=== PATIENT | female | born 1975 | race Two or more races ===

== ENCOUNTER 2019-01-26 09:53 | Emergency (ER) | payer MEDICAID ==
[~2019-01-26] VITALS: Ht 149.9 cm; Wt 85.7 kg
--- NOTE | 2019-01-26 09:53 | NUR ---
BIB FRIEND W C/O LLQ ABDOMINAL PAIN AND VAGINAL BLEEDING x 16 DAYS. A0, DENIES . 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
--- NOTE | 2019-01-26 10:50 | NUR ---
DR PUTNAM AT BEDSIDE FOR EVAL.
[2019-01-26 11:11] LABS: BASOPHILS # (AUTO) 0.1 /CMM (0.0-0.2); BASOPHILS % (AUTO) 1.3 % (0.0-2.0); EOSINOPHILS % (AUTO) 8.5 % (0.0-6.0); LYMPHOCYTES # (AUTO) 2.1 /CMM (0.8-4.8); LYMPHOCYTES % (AUTO) 28.4 % (20.0-44.0); MEAN CORPUSCULAR HGB CONC 33 g/dl (31.0-36.0); MEAN CORPUSCULAR VOLUME 79 fL (82-100); MONOCYTES # (AUTO) 0.5 /CMM (0.1-1.30); MONOCYTES % (AUTO) 6.6 % (2.0-12.0); NEUTROPHILS % (AUTO) 55.2 % (43.0-81.0); PLATELET COUNT (AUTO) 367 /CMM (150-450); RED BLOOD CELL COUNT(AUTO) 2.42 MIL/uL (4.0-5.2); WHITE BLOOD COUNT (AUTO) 7.3 K/uL (4.3-11.0)
[2019-01-26 11:14] LABS: HEMATOCRIT 19 % (33-45); HEMOGLOBIN 6.2 g/dL (11.5-14.8)
[2019-01-26 11:16] LABS: CALCIUM, SERUM 8.2 mg/dL (8.5-10.1); CREATININE 0.5 mg/dL (0.6-1.3); POTASSIUM 4.3 mmol/L (3.5-5.1)
[2019-01-26 11:21] LABS: ALBUMIN 3.3 g/dL (3.4-5.0); BILIRUBIN,DIRECT 0.1 mg/dL (0.0-0.2); BILIRUBIN,TOTAL 0.3 mg/dL (0.2-1.0); TOTAL PROTEIN, SERUM 6.8 g/dL (6.4-8.2)
--- NOTE | 2019-01-26 11:35 | NUR ---
US TECH AT BEDSIDE
--- NOTE | 2019-01-26 12:12 | NUR ---
CALLED DR SOSA OFFICE
[2019-01-26 12:29] LABS: BAND % (MANUAL) 1 % (0.0-5.0); LYMPHOCYTES % (MANUAL) 29 % (16-48); MONOCYTES % (MANUAL) 5 % (0-11.0); NEUTROPHILS % (MANUAL) 55 (42-76)
[2019-01-26 12:30] LABS: EOSINOPHILS % (MANUAL) 10 % (0-4)
--- NOTE | 2019-01-26 13:15 | NUR ---
PT SIGNED BLOOD TRANSFUSION CONSENT
--- NOTE | 2019-01-26 15:52 | NUR ---
[facility] VERIFIED W ZURI SEYMOUR RN. PE VITAL SIGNS CHECKED AND STABLE. PROVIDED PT WITH ADVERSE REACTION INFORMATION. PT VERBALIZED UNDERSTANDING.
--- NOTE | 2019-01-26 16:16 | NUR ---
PT TOLERATING BLOOD TRANSFUSION WELL, NO ADVERSE REACTION NOTED. ON CLOSE MONITORNING. VSS, WILL CONTINUE TO MONITOR.
--- NOTE | 2019-01-26 16:45 | NUR ---
PT TOLERATING BLOOD TRANSFUSION WELL, NO ADVERSE REACTION NOTED. ON CLOSE MONITORNING. VSS, WILL CONTINUE TO MONITOR.
--- NOTE | 2019-01-26 17:35 | NUR ---
BLOOD TRANSFUSION COMPLETED, VSS, NO NOTED ADVERSE SYMPTOMS. HOOKED TO MONITOR. WILL CONTINUE TO MONITOR
--- NOTE | 2019-01-26 18:06 | NUR ---
PT ASLEEP IN BED. EASILY AROUSED BY VOICE. VSS, HOOKED TO MONITOR. REQUESTED TO REST A LITTLE BIT. WILL ALSO CALL FAMILY FOR PCU RN.
[2019-01-26] MEDS ORDERED: ACETAMINOPHEN 325 MG TABLET ONE (18:46)
--- NOTE | 2019-01-26 18:55 | NUR ---
PT IN BED, C/O HEADACHE. REQUESTS FOR TYLENOL. MADE MD AWARE. HOOKED TO MONITOR. VSS.
--- NOTE | 2019-01-26 19:10 | NUR ---
IV removed. Catheter intact and site benign. Pressure and 4x4 applied to site. No bleeding noted.Patient discharged to home in stable condition. Written and verbal after care instructions given. Patient verbalizes understanding of instruction.
[2019-01-26 19:20] VITALS: BP 125/68
[2019-01-26] MEDS ORDERED: ACETAMINOPHEN 325 MG TABLET PO ONE (19:30)
== END 2019-01-26 19:10 | disposition home or self-care (01) ==
LOC: ER 09:55
DX: D64.9 Anemia, unspecified (principal); D25.9 Leiomyoma of uterus, unspecified; N93.8 Other specified abnormal uterine and vaginal bleeding; E11.65 Type 2 diabetes mellitus with hyperglycemia; R42 Dizziness and giddiness
CPT/HCPCS: 36415; 76856; 80048; 80076; 83690; 85025; 86850; 86921; 99284; P9016; J7030